=== PATIENT | male | born 1970 | race Caucasian/White ===

== ENCOUNTER 2019-07-16 14:18 | Inpatient (IN) | payer BC ==
[~2019-07-16] VITALS: Ht 167.6 cm; Wt 79.5 kg
--- NOTE | ~2019-07-16 | H ---
[facility] [address] [place] [address] HISTORY AND PHYSICAL Name: KARLY DAVIS V Room #: 170-11 ADM IN M.R.#: [id number] Admission: 07/16/19 Attend Phys: Jair Marks MD, Discharge: Date of : 72 Report #: [id number] THIS REPORT FOR: cc: FAM - Family physician unknown FAM - Family physician unknown ~ CC: [facility] unknown Jair Marks DATE OF SERVICE: 07/16/2019 HISTORY OF PRESENT ILLNESS: The patient is a 48-year-old male who was transferred here from [facility] Emergency Room what I perceived to be nonspecific EKG changes. They were concerned about a posterior infarct on their EKG with some subtle ST depression in the inferior leads and otherwise certainly did not seem to be significantly changed or less impressive here, some nonspecific ST-T very minimal ST depression in the high lateral and V2, V3, certainly not an acute infarct pattern. He has had no prior cardiac history. This occurred while driving from to get some parts, he states. He has felt well, although did felt a little funny nondescript last night. When even described as he said as chest pain, but more of a burning across his chest with taking a deep inspiration or felt like when his lungs were cold. He denies any constitutional illness. No fever or chills. He does chew tobacco and he has only eaten a coke and chewing tobacco this morning. So certainly questioning, possibly reflux issue, although no prior history. His laboratory work has a troponin of 0.17 here, he has been under a lot of stress due to her impending divorce. He is accompanied by the girlfriend here today. He denies PND or orthopnea. No change in exercise tolerance. LABORATORY DATA: Creatinine is 1.3. White count 13, H and H are 16 and 47. Differential is pending. Platelets are normal. CT of the chest reveals no pulmonary embolism, mild coronary atherosclerosis, some fluid and gaseous distention of the stomach. MEDICATIONS: Currently none. PAST MEDICAL HISTORY: Positive for some borderline hypertension in the past, which he did not take the medication long. He has a nurse practitioner who he sees intermittently. SOCIAL HISTORY: He is a pending divorce accompanied by his girlfriend. Social alcohol. He chews tobacco. He works. FAMILY HISTORY: Father had a bypass around age 70, late 60s he states. Father was a nonsmoker. The patient has brothers and sisters with no cardiac history. [facility] [address] [place] [address] HISTORY AND PHYSICAL Name: KARLY DAVIS V Room #: [address] IN M.R.#: [id number] Admission: 07/16/19 Attend Phys: Jair Marks MD, Discharge: Date of : 72 Report #: [id number] REVIEW OF SYSTEMS: Essentially negative except as stated above and some occasional nocturia. PHYSICAL EXAMINATION: VITAL SIGNS: Pulse is 80s, blood pressure 138/90. HEENT: Eyes reveal xanthelasmas. Pharynx is clear. NECK: Shows preserved upstrokes without JVD or bruits. LUNGS: Clear. CARDIOVASCULAR: Regular rate and rhythm, S1 and S2, without murmur or gallop. ABDOMEN: Soft. No HSM or abdominal bruit, slightly tender in the epigastric area. EXTREMITIES: Reveal no edema. His pulses were intact. NEUROLOGIC: Nonfocal. SKIN: Warm and dry without xanthoma or ulcer. MUSCULOSKELETAL: No gross joint deformity. ASSESSMENT: 1. Chest pain with an equivocal troponin and EKG as stated above, currently resolved chest pain. 2. Hypertension. 3. Suspected hypercholesterolemia. 4. Possible reflux. RECOMMENDATIONS AND PLAN: GI cocktail and p.o. beta-trung currently given. We will admit to the CCU under observation. We will obtain a troponin and lipid in the morning. If there is any significant rise, would certainly consider cardiac catheterization, although it does have somewhat of a paucity of risk factors with the family history is concerning and atherosclerosis noted on the CAT scan. This also could have a GI etiology. Other concern would be a possible Takotsubo, although not an impressive EKG, but certainly been under a lot of duress with his pending divorce. We will obtain echo Doppler and repeat EKG in the a.m. in addition. This has been discussed with the patient, his girlfriend and Dr. Rdz of the Emergency Room. By: 1558 1618 /nt
[2019-07-16 14:19] VITALS: BP 136/88
[2019-07-16 14:56] LABS: HEMATOCRIT 47.3 % (42.0-52.0); HEMOGLOBIN 16.2 gm/dL (14.0-18.0); MCH 30.3 pg (26.0-34.0); MCHC 34.3 g/dL (28.0-37.0); MCV 88.6 fL (80.0-100.0); RBC 5.34 mil/uL (4.50-6.00); RDW 13.2 % (10.5-14.5); WBC 13.6 thou/uL (4.0-11.0)
[2019-07-16 15:07] LABS: CALCIUM 8.3 mg/dL (8.5-10.1); CREATININE 1.3 mg/dL (0.7-1.3); POTASSIUM 4.2 mmol/L (3.5-5.1)
[2019-07-16 15:12] LABS: APTT 68.9 Seconds (24.5-32.8)
[2019-07-16 15:15] LABS: TROPONIN-I 0.17 ng/mL (<0.06)
[2019-07-16 15:23] LABS: INR 1.1; PROTIME 11.5 Seconds (9.3-11.4)
[2019-07-16 16:10] VITALS: BP 138/91
[2019-07-16 17:06] VITALS: BP 137/89
[2019-07-16] MEDS ORDERED: ADVIL200 M3 PO (18:30)
[2019-07-16 18:40] VITALS: BP 120/86
[2019-07-16 19:19] LABS: CHOLESTEROL 171 mg/dL (<200); HDL CHOLESTEROL 33 mg/dL (>40); LDL CHOLESTEROL 104 mg/dL (<100); TC:HDL 5.2 Ratio (Not establshd); TRIGLYCERIDE 174 mg/dL (<150); VLDL 35 mg/dL (<40)
[2019-07-16 20:17] VITALS: BP 124/80
--- NOTE | 2019-07-16 20:32 | NUR ---
PT. ARRIVED AROUND 1814; AOX4; C/O CP; 05/15; DR. BIRD CALLED FOR UPDATES ON PT. BEFORE ARRIVING TO FLOOR; ORDERS RECEIVED; ORDERS PLACED AFTER PT. ARRIVAL; EDUCATED ABOUT FALL PREVENTIONS; BED & CALL LIGHT CONTROLS; ST. UNDERSTANDING; PASSED ON REPORT; DR. BIRD PAGED BY LEAD PYTHON DEVELOPER NURSE; ORDERS RECEIVED; SR ON THE MONITOR; PASSED ON REPORT;
--- NOTE | 2019-07-16 20:51 | EKG ---
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
--- NOTE | 2019-07-16 20:51 | EKG ---
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
[2019-07-17 03:53] VITALS: BP 120/86
--- NOTE | 2019-07-17 07:28 | NUR ---
ASSUMED PT CARE AT 1900, PT IS AWAKE, A&OX4, GOT REPORT FROM DAY NURSE, CRITICAL TROPONIN CALLED TO DR. BIRD, NEW ORDERS RECEIVED, PT DENIED CHEST PAIN OR SOB, SR ON THE MONITOR, ADMISSION ASESSMENT COMPLETED AND CHARTED, PT REMAINED NPO AFTER MIDNIGHT FOR CARDIAC CATH THIS AM, DR. BIRD EXPLAINED PROCEDURE THIS AM, CONSENT SIGNED, DENIED CHEST PAIN OR SOB OVERNIGHT, PT OFF THE UNIT FOR CARDIAC CATH THIS AM
--- NOTE | 2019-07-17 07:42 | EKG ---
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
--- NOTE | 2019-07-17 08:46 | NUR ---
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 REC REPORT AT 0822, HEMOSTASIS ACHIEVED AT 0815, PT CAN BE UP AT 1115. SEE DATA FLOW SHEET FOR VS, SEE SEPARATE INTEVENTIONS FOR ASSESSMENTS. A&0X4, INSTRUCTION GIVEN ON ALL RESTRICTIONS, PT IN GOOD SPIRITS, WILL CONTINUE TO MONITOR.
--- NOTE | 2019-07-17 17:08 | CATHLAB ---
[facility] [place] [address] [place] [address] INVASIVE PROCEDURE REPORT Name: KARLY DAVIS V Room #: 213-P ADM IN M.R.#: [id number] Admission: 07/16/19 Attend Phys: Jair Marks MD, Discharge: Date of : 72 Report #: [id number] THIS REPORT FOR: cc: FAM - Family physician unknown FAM - Family physician unknown Jair Marks MD [facility] ~ APPROVED REPORT Study performed: 07/17/2019 06:59:39 Patient Details Patient Status: In-Patient Room #: 213 The patient is a 48 year-old male Event Personnel Jair Marks Irrigationist Designer, Pita Zaidi RN, Patricia Dunham RTR, SURVEY INSTRUMENT OPERATOR Monitor, Serena Barney Procedures Performed Art Access - R femoral artery* Left Heart Cath w/or w/o Coronaries 9587665 [facility] [address] Initial Mod Sed Same Phys/QHP Gr5y 305183 Abdominal Aortography 5[address] w/wo Plasty Single CIRC 904037 14605 Mod Sed Same Phys/QHP Ea 567573 Indication Chest pain Procedure Narrative The Right Groin^ was infiltrated with 1% Lidocaine subcutaneous anesthesia. A PINNACLE 6FR Sheath #[id number] sheath was inserted into the RFA^. Coronary angiography was performed using coronary diagnostic catheters. The right coronary system was accessed and visualized with a 6FR 3DRC #[id number] catheter. The left coronary system was accessed and visualized with a JL4 catheter. The left ventricle was accessed and visualized with a PIGTAIL catheter. Left ventriculogram was performed in 30 degree projection. An aortogram of the abdominal aorta was performed. Closure device was deployed with a 6 Fr 6/7F MYNXGRIP. The patient tolerated the procedure well and there were no complications associated with the procedure. There was no hematoma. Intraoperative Conscious Sedation Sedation start time: 07:23 Case end Time: 08:15 [facility] [place] [address] INVASIVE PROCEDURE REPORT Name: KARLY DAVIS V Room #: 213-P [facility] IN .R.#: [id number] Admission: 07/16/19 Attend Phys: Jair Marks, Discharge: Date of : 72 Report #: [id number] Fentanyl 75 mcg Versed 1.5 mg Fluoro Time: 6.05 minutes Dose: DAP 7316.60 cGycm2 062 mGy Contrast Type and Amount: Visipaque 180 ml Hemodynamics The aortic pressure is 124/81 mmHg with a mean of 100 mmHg. The left ventricular pressure is 115/15 mmHg with a mean of mmHg. The left ventricular end diastolic pressure is 29 mmHg. PCI Technique Lesion Percutaneous coronary intervention was performed on the proximal circumflex artery segment. A LAUNCHER 6FR EBU 3.5 #[id number] Guide Catheter was used to engage the ostium. A Luge Wire .014 x 182CM #[id number] Interventional Guidewire was used to cross the lesion. BALLOON DILATION A Balloon catheter Sprinter OTW 2.5 x 15 #[id number] was inserted and inflated up to 5.00atm for 23seconds. Additional Inflation: 7.00atm for 28seconds. STENT DEPLOYMENT A drug-eluting stent RESOLUTE DAVEY OTW 2.5 X 15 #[id number] was inserted and inflated up to 12.00atm for 27seconds. Additional Inflation: 14.00atm for 21seconds. Conclusion #1. Successful PTCA stent of the proximal circumflex subtotal lesion to 0% residual with a 2.5 x 15 resolute Davey medicated stent. Postdilated 2.7 mm. TREY grade III flow (non-STEMI) #2 left main mild disease giving rise to LAD and circumflex #3 LAD is mildly diseased proximal calcification. There is a 5060% proximal lesion following to the apex diffusely diseased small diagonal system #4 dominant right coronary artery with mild irregularities PDA TOSHIA mildly diseased anatomically dominant vessel #5 normal left jugular size with posterior lateral hypokinesis EF 45% (suspect stunning) #6 normal abdominal aortogram mildly ectatic no aneurysm single bilateral renal arteries mildly diseased Recommendations and plan: Continue aggressive risk factor modification. Dual antiplatelet therapy is initiated. Transferred [facility] [address] [place] [address] INVASIVE PROCEDURE REPORT Name: KARLY DAVIS V Room #: 213-P [facility] IN M.R.#: [id number] Admission: 07/16/19 Attend Phys: Jair Marsk, Discharge: Date of : 72 Report #: [id number] to CCU in stable condition. Suspect LV dysfunction will improve stunned myocardium. <ELECTRONICALLY SIGNED> By: Jair Marks MD, FACC 07/17/191705 05 05 Jair Mraks MD, FACC /INF
[2019-07-17 20:19] VITALS: BP 103/69; BP 13/69
[2019-07-18 00:14] VITALS: BP 103/69
--- NOTE | 2019-07-18 05:00 | NUR ---
ASSUMED PT CARE AT 1900, PT IS AWAKE, A&OX4, SR ON THE MONITOR, RIGHT GROIN CLEAN DRY AND INTACT, VITAL SIGNS STABLE, ASSESSMENTS CHARTED, DENIES PAIN AND SOB, RESTED WELL, WILL CONTINUE TO MONITOR
[2019-07-18 05:02] LABS: HEMATOCRIT 44.4 % (42.0-52.0); HEMOGLOBIN 15.4 gm/dL (14.0-18.0); MCHC 34.8 g/dL (28.0-37.0); MCV 89.1 fL (80.0-100.0); RBC 4.98 mil/uL (4.50-6.00); RDW 13.5 % (10.5-14.5); WBC 11.4 thou/uL (4.0-11.0)
[2019-07-18 05:12] VITALS: BP 95/62
[2019-07-18 05:21] LABS: ALBUMIN 3.6 g/dL (3.4-5.0); CALCIUM 8.8 mg/dL (8.5-10.1); CREATININE 1.4 mg/dL (0.7-1.3); POTASSIUM 3.9 mmol/L (3.5-5.1); TOTAL BILIRUBIN 0.8 mg/dL (<0.1-1.0); TOTAL PROTEIN 6.9 g/dL (6.4-8.2)
[2019-07-18 08:00] VITALS: BP 99/65
--- NOTE | 2019-07-18 08:04 | EKG ---
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1970 Requested By: Zaria Benson Order Number: [id number] MD: Samy Monge Measurements Intervals [place] Rate: 85 P: 17 IN: 145 QRS: -25 QRSD: 97 T: 98 QT: 370 QTc: 440 Interpretive Statements Sinus rhythm Borderline left axis deviation RSR' in V1 or V2, right VCD Nonspecific T abnormalities, lateral leads Compared to ECG 07/16/2019 20:04:50 RSR' in V1 or V2 now present Electronically Signed On 07-18-2019 8:02:38 CDT by Samy Monge [email or web address] <ELECTRONICALLY SIGNED> By: Samy Monge MD, FAC 07/18/19801 0 0 Samy Monge MD, FAC /EPI
--- NOTE | 2019-07-18 10:41 | 2DMMODE ---
[facility] [place] [address] [place] [address] 2 D/M-MODE ECHOCARDIOGRAM Name: KARLY DAVIS V Room #: 213-P ADM IN M.R.#: [id number] Admission: 07/16/19 Attend Phys: Jair Marks MD, Discharge: Date of : 72 Report #: [id number] THIS REPORT FOR: cc: FAM - Family physician unknown FAM - Family physician unknown Jair Marks MD [facility] ~ APPROVED REPORT Study performed: 07/18/2019 09:46:29 EXAM: Comprehensive 2D, Doppler, and color-flow Echocardiogram Patient Location: Echo lab Room #: 213 Status: routine BSA: 1.89 HR: 77 bpm BP: 95/62 mmHg Rhythm: NSR Other Information Study Quality: Good Indications NSTEMI status post PCI. Hx: HTN, HLP. 2D Dimensions RVDd: 31.80 mm IVSd: 9.42 (7-11mm) LVOT Diam: 21.65 (18-24mm) LVDd: 41.26 mm PWd: 8.97 (7-11mm) Ascending Ao: 28.77 (22-36mm) LVDs: 33.21 (25-40mm) Aortic Root: 34.82 mm Volumes Left Atrial Volume (Systole) Single Plane 4CH: 32.76 mL Single Plane 2CH: 42.19 mL LA ESV Index: 22.00 mL/m2 Aortic Valve AoV Peak Boo.: 0.86 m/s AO Peak Gr.: 2.92 mmHg LVOT Max P.99 mmHg LVOT Max V: 0.71 m/s SINA Vmax: 3.04 cm2 [facility] [address] [place] [address] 2 D/M-MODE ECHOCARDIOGRAM Name: KARLY DAVIS V Room #: 213-P [facility] IN ..#: [id number] Admission: 07/16/19 Attend Phys: Jair Marks, Discharge: Date of : 72 Report #: [id number] Mitral Valve E/A Ratio: 0.7 MV Decel. Time: 190.31 ms MV E Max Boo.: 0.37 m/s MV A Boo.: 0.53 m/s MV PHT: 55.19 ms IVRT: 85.35 ms Pulmonary Valve PV Peak Boo.: 0.70 m/s PV Peak Gr.: 1.94 mmHg Pulmonary Vein P Vein S: 0.55 m/s P Vein A: 0.32 m/s P Vein D: 0.40 m/s P Vein A Dur.: 96.9 msec P Vein S/D Ratio: 1.38 Tricuspid Valve RAP Estimate: 5.00 mmHg Left Ventricle The left ventricle is normal size. Regional wall motion abnormalities are noted.post lateral hypokinesis There is normal left ventricular wall thickness. Left ventricular systolic function is mild to moderately decreased. LVEF is 40-45%. Mild diastolic dysfunction is present (impaired relaxation pattern). Right Ventricle The right ventricle is normal size. The right ventricular systolic function is low normal. Atria The left atrium size is normal. The right atrium size is normal. Aortic Valve The aortic valve is normal in structure. No aortic regurgitation is present. There is no aortic valvular stenosis. Mitral Valve The mitral valve is normal in structure. Trace mitral regurgitation. No evidence of mitral valve stenosis. Tricuspid Valve The tricuspid valve is normal in structure. There is no tricuspid valve regurgitation noted. Unable to assess PA pressure. [facility] [address] [place] [address] 2 D/M-MODE ECHOCARDIOGRAM Name: KARLY DAVIS V Room #: 213-P ADM IN M.R.#: [id number] Admission: 07/16/19 Attend Phys: Jair Marks, Discharge: Date of : 72 Report #: [id number] Pulmonic Valve The pulmonary valve is normal in structure. Mild pulmonic regurgitation. Great Vessels The aortic root is normal in size. The ascending aorta is normal in size. IVC is normal in size and collapses >50% with inspiration. Pericardium There is no pericardial effusion. <Conclusion> The left ventricle is normal size. Regional wall motion abnormalities are noted.post lateral hypokinesis LVEF is 40-45%. Mild diastolic dysfunction is present (impaired relaxation pattern). The right ventricle is normal size. The left atrium size is normal. The aortic valve is normal in structure. Trace mitral regurgitation. There is no tricuspid valve regurgitation noted. Unable to assess PA pressure. The aortic root is normal in size. There is no pericardial effusion. <ELECTRONICALLY SIGNED> By: Jair Marks MD, FACC 07/18/19 1039 1039 1039 Jair Marks MD, FACC /INF
[2019-07-18 11:15] VITALS: BP 103/66
[2019-07-18 16:39] VITALS: BP 102/66
--- NOTE | 2019-07-18 17:44 | NUR ---
ASSUMED CARE OF PT AT SHIFT CHANGE. ASSESSMENTS CHARTED. 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 VSS. NO C/O PAIN OR SOA. GROIN SITE IS CDI, WITH NO HEMATOMA. PLAN TO DISCHARGE TOMORROW.
[2019-07-18 21:00] VITALS: BP 99/72
[2019-07-19 04:48] VITALS: BP 85/58
[2019-07-19 05:26] LABS: ALBUMIN 3.5 g/dL (3.4-5.0); CALCIUM 8.6 mg/dL (8.5-10.1); CREATININE 1.4 mg/dL (0.7-1.3); POTASSIUM 3.9 mmol/L (3.5-5.1); TOTAL BILIRUBIN 0.8 mg/dL (<0.1-1.0); TOTAL PROTEIN 7.1 g/dL (6.4-8.2)
--- NOTE | 2019-07-19 06:04 | NUR ---
ASSUMED PT CARE AROUND 1900. PT RESTING IN BED TALKING ON PHONE. PT HAD NO C/O CHEST PAIN, SOA, OR N/V/D. PT WAS ABLE TO WALK AROUND UNIT PRIOR TO BEDTIME. PT RESTED THRU NIGHT WITH MINIMAL INTERRUPTIONS. PT IS READY FOR DISCHARGE.
[2019-07-19 07:22] VITALS: BP 104/75
[2019-07-19] MEDS ORDERED: LIPITOR40 MG PO (07:46)
[2019-07-19] MEDS ORDERED: EFFIENT10 MG PO (07:46)
[2019-07-19] MEDS ORDERED: METOPROLOL SUCC25 M1 PO (07:46)
[2019-07-19] MEDS ORDERED: ASPIRIN325 PO (07:46)
[2019-07-19 09:17] VITALS: BP 104/75
--- NOTE | 2019-07-19 10:19 | NUR ---
ASSUMED CARE 0700. VSS, DENIES SOB, DENIES CHEST PAIN, ALERTX4, RIGHT GROIN SIGHT C/D/I WITH BRUISE PRESENT SOFT AND NON-TENDERS. UP AB EZE TO BATHROOM. CARDIAC POST CATH CARE REVIEWED. NRS ON TELE. REVIEWED DISCHARGE PAPERS AND NEW MEDICATIONS. IV AND TELE REMOVED. WILL DC HOME WITH SELF CARE.
--- NOTE | 2019-07-19 14:30 | EKG ---
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1970 Requested By: Jair Marks Order Number: [id number] MD: Samy Monge Measurements Intervals [place] Rate: 77 P: 14 [place]: 163 QRS: -36 QRSD: 96 T: 75 QT: 372 QTc: 421 Interpretive Statements Sinus rhythm Left axis deviation RSR' in V1 or V2, right VCD Minimal ST elevation, lateral leads Compared to ECG 07/18/2019 07:01:48 No significant change was found Electronically Signed On 07-19-2019 14:28:40 CDT by Samy Monge [email or web address] <ELECTRONICALLY SIGNED> By: Samy Monge MD, FAC 07/19/19 1428 0710 0710 Samy Monge MD, FAC /EPI
== END 2019-07-19 14:03 | disposition home or self-care (01) | DRG 247 ==
LOC: ER 14:18 → EROBS 16:05 → 2N 16:05
PROVIDERS: Emergency Medicine Emergency Medical Services; Nurse Practitioner Adult Health; ADMIT Internal Medicine Cardiovascular Disease
DX: I21.4 Non-ST elevation (NSTEMI) myocardial infarction (principal); F17.220 Nicotine dependence, chewing tobacco, uncomplicated; E78.5 Hyperlipidemia, unspecified; Z82.49 Family history of ischemic heart disease and other diseases of the circulatory system
CPT/HCPCS: 10081; 10194